=== PATIENT | male | born 1980 | race Caucasian/White ===

== ENCOUNTER 2017-01-27 | Emergency (ER) | payer OTHER ==
[2017-01-27] MEDS ORDERED: Proparacaine 0.5% Ophth Soln 15 ML Bottle EYEBOTH ONE (00:17)
[2017-01-27] MEDS ORDERED: Benoxinate/Fluorescein 0.4-0.25% Ophth Soln 5 ML Bottle EYEBOTH ONE (00:18)
--- NOTE | 2017-01-27 01:24 | EDM.PDOC ---
ED HPI GENERAL MEDICAL PROBLEM - General Chief Complaint: Eye Problems Stated Complaint: POSS EYE INJURY Time Seen by Provider: 01/27/17 01:24 - History of Present Illness INITIAL COMMENTS - FREE TEXT/NARRATIVE: 36-year-old male presents emergency room with bilateral eye pain. Around 3:00 this afternoon the patient was working around welders however did not have proper protective gear on he had enough of the exposure to get a sunburn-like reaction to his face. The patient has never had flashburn before he is a spot welder line by trade. Patient denies any other injuries or problems. He developed significant pain a couple of hours ago. bilateral eyes Pain Score (Numeric/FACES): 8 - Related Data Allergies Allergy/AdvReac Type Severity Reaction Status Date / Time amoxicillin Allergy Diarrhea Verified 01/27/17 00:12 Home Meds: Home Meds . [No Known Home Meds] 01/27/17 [History] Past Medical History - Past Health History Medical/Surgical History: Denies Medical/Surgical History Social & Family History - Family History Family Medical History: Noncontributory - Tobacco Use Smoking Status *Q: Current Every Day Smoker Years of Tobacco use: 20 Packs/Tins Daily: 1.5 - Caffeine Use Caffeine Use: Reports: Coffee, Energy Drinks, Soda - Recreational Drug Use Recreational Drug Use: No ED ROS GENERAL - Review of Systems Review Of Systems: See Below Constitutional: Reports: No Symptoms HEENT: Reports: Eye Pain, Vision Change. Denies: Ear Pain, Rhinitis, Throat Pain Respiratory: Reports: No Symptoms Cardiovascular: Reports: No Symptoms GI/Abdominal: Reports: No Symptoms ED EXAM GENERAL W FULL EYE - Physical Exam Exam: See Below Exam Limited By: No Limitations General Appearance: Alert, Mild Distress (For my discomfort) Eye Exam: Bilateral Eye: Conjunctival Injection Visual Acuity (R) 20/: 30 Visual Acuity (L) 20/: 40 With Correction: No Eyelids: Bilateral: Other (He has increased tear production otherwise unremarkable) Conjunctiva & Sclera: Bilateral: Injected Cornea Exam: Bilateral: Examined with Flourescein (He has mild punctate staining of the cornea) Extraocular Movements: Bilateral: Intact Pupils: Normal Accommodation Pupillary Reaction: Bilateral: Brisk Anterior Chamber: Bilateral: Normal Appearance Ears: Normal External Exam, Normal Canal, Normal TMs Nose: Normal Inspection, Normal Mucosa Throat/Mouth: Normal Inspection, Normal Lips Head: Other (He has a facial sunburn-like appearance) Neck: Normal Inspection, Supple, Non-Tender, Full Range of Motion. No: Lymphadenopathy (L), Lymphadenopathy (R) Respiratory/Chest: No Respiratory Distress, Lungs Clear, Normal Breath Sounds Cardiovascular: Regular Rate, Rhythm, No Edema, No Murmur Course - Vital Signs Last Recorded V/S: Last Vital Signs Temp 36.5 C 01/27/17 00:03 Pulse 87 01/27/17 00:03 Resp 18 01/27/17 00:03 BP 158/95 H 01/27/17 00:03 Pulse Ox 96 01/27/17 00:03 - Orders/Labs/Meds Meds: Medications Discontinued Medications Generic Name Dose Route Start Last Admin Trade Name Joselin PRN Reason Stop Dose Admin Erythromycin 1 gm 01/27/17 01:46 Erythromycin 0.5% Ophth Oint EYEBOTH 01/27/17 01:47 ONETIME ONE Fluorescein Sodium/Benoxinate HCl 1 ml 01/27/17 00:18 01/27/17 00:23 Fluress Ophth Soln EYEBOTH 01/27/17 00:19 1 ml ONETIME ONE Administration Proparacaine HCl 1 ml 01/27/17 00:17 01/27/17 00:22 Proparacaine 0.5% Ophth Soln EYEBOTH 01/27/17 00:18 1 ml ONETIME ONE Administration - Re-Assessments/Exams Free Text/Narrative Re-Assessment/Exam: 01/27/17 01:58 Slit lamp examination was done after ensuring no foreign bodies in either eye no evidence of kaye metallic corneal involvement floor seen staining was done which revealed some fine punctate uptake. The patient had good relief of symptoms from proparacaine eyedrops Departure - Departure Time of Disposition: 01:47 Disposition: Home, Self-Care 01 Clinical Impression: Photokeratitis of both eyes - Discharge Information Referrals: PCP,None [Primary Care Provider] - Forms: ED Department Discharge Additional Instructions: Return to the emergency room with any questions problems worsening symptoms. You have a burn to the top of your eyes from light exposure from the spot welder line, this called photokeratitis, or flashburn. This should improve after 24-48 hours. Use erythromycin ointment about a half inch to each eye every 4 hours while awake. Use of pain medication as needed one or 2 [place] every 6 hours as needed. You have been given #20 from the machine out in the waiting room. Allow 12 hours after using this medication before driving or returning to work. Follow-up with your eye doctor on if needed.
[2017-01-27] MEDS ORDERED: Erythromycin Base 0.5% Ophth Oint 1 GM Tube EYEBOTH ONE (01:46)
== END 2017-01-27 02:00 | disposition home or self-care (01) ==
LOC: JD.ED
DX: H16.133 Photokeratitis, bilateral (principal); F17.210 Nicotine dependence, cigarettes, uncomplicated; Z88.1 Allergy status to other antibiotic agents
CPT/HCPCS: 99283; A9270

== ENCOUNTER 2021-11-05 06:29 | Emergency (ER) | payer BC ==
[2021-11-05] MEDS ORDERED: Ketorolac 60 MG/2 ML SDV IM ONE (07:58)
== END 2021-11-05 10:30 | disposition home or self-care (01) ==
LOC: JD.ED 06:29
DX: M43.6 Torticollis (principal); F17.210 Nicotine dependence, cigarettes, uncomplicated; Z88.0 Allergy status to penicillin
CPT/HCPCS: 96372; 99283; J1885